=== PATIENT | female | born 1935 | race Caucasian/White ===

== ENCOUNTER 2016-08-14 18:17 | Emergency (ER) | payer MEDICARE ==
[~2016-08-14] VITALS: Ht 152.4 cm; Wt 54.4 kg
[~2016-08-14 18:17] MED LIST: ACET-168 PO; ACET-2267 PO; ACET1TAB43 PO; BACL10TA PO; CHOL4PAC PO; CITA10TA7 PO; CLIN300C11 PO; DABI150C5 PO; DICL100G18 TP; DONE10TA41 PO; DONE5TAB30 PO; FAMO20TA5 PO; FEN12TD TD; FENT1PAT8 TD; HYDR-3812 PO; HYDR-3816 PO; HYDR-3820 PO; LACT1CAP62 PO; LD5O35 TP; LEVO100T7 PO; LEVO250T46 PO; LISI10TA2 PO; LOPE2TAB34 PO; LORA10TA7 PO; LUTE20TA PO; METO-333 PO; NITR1PAT56 TD; NITR1PAT62 TD; POTA10CA43 PO; PRAM0.5T9 PO; SULF-222 PO; [UNRECOGNIZED DRUG - CODE] PO
--- OUTSIDE RECORDS SUMMARY | 2016-08-14 18:25 | XMS REPORT | Continuity of Care Document ---
Author Author [facility] Organization [facility] Address Unknown Phone Unavailable Care Team Providers Care Director Pharmacology Name Role Phone ADENIKE LUJAN DO PCP Insurance Providers Payer Name Policy Number Subscriber Name Relationship Wps Medicare [id number] Abigail Sharma 18 Self / Same As Patient Blue Cross Mcr Supp [id number] Abigail Sharma 18 Self / Same As Patient Advance Directives Directive Response Recorded Date/Time Advance Directives Yes 12/24/15 6:37pm Health Care Power of Cigar Head Piercer Y WHIT- SON 12/24/15 6:37pm Organ Donor [...] Type Severity Reaction Status Last Updated gluten ([id number]) Allergy Unknown Active 12/22/15 Immunizations Name Given Type Date of Pneumonia Vaccine 06/25/15 Historical Date of Influenza Vaccine 06/25/15 Historical Vital Signs Acute Vital Signs Vital Response Date/Time Temperature (Fahrenheit) 96.6 degrees F (97.6 - 99.5) 01/04/2016 2:13pm Temperature (Calculated Celsius) 35.16919 degrees C (36.4 - 37.5) 01/04/2016 6:00am [...] 2.00 inches 12/24/2015 6:42pm Height (Calculated Centimeters) 157.447859 cm 12/24/2015 6:42pm Weight (Pounds) 130 pounds 12/24/2015 6:42pm Weight (Ounces) 0.0 oz 12/24/2015 6:42pm Weight (Calculated Grams) 27208.009 gm 12/24/2015 6:42pm Weight (Calculated Kilograms) 58.052223 kilograms 12/24/2015 6:42pm Calculated BMI 23.8 12/24/2015 [...] SELECTED GROUPS OF HIGH RISK PATIENTS. SIX[employer] [place] [employer] OF CHEST PH[employer]ICIANS CONSENSUS CONFERENCE ON ANTITHROMBOTIC THERAPY (2000). Activated Partial Thromboplast Time 57 SEC H 24-35 12/22/2015 4:47am 02/2016 5:56am Urine Color YELLOW 12/21/2015 1:23pm 12/21/2015 1:44pm Urine Clarity SLIGHTLY CLOUDY 12/21/2015 1:23pm 12/21/2015 1:44pm Urine pH 5 5-9 12/21/2015 1:23pm 12/21/2015 1:44pm Urine Specific [place] 1.015 * 1.016-1.022 12/21/2015 1:pm 2015 1:44pm [...] 0.70-1.48 12/21/2015 11:23am 12/21/2015 2: 34pm TSH [place] Testing 10.89 UIU/ML H 0.35-4.94 12/21/2015 11:23am [...] Discharge/Depart Date Attending Provider Discharged Inpatient [facility] 12/24/15 1:25pm 1:50pm SARAH MILLER MD Discharged Inpatient [facility] 12/21/15 1:59pm 1:00pm ADENIKE LUJAN DO
--- NOTE | 2016-08-14 19:06 | ED Fall/Injury ---
General Chief Complaint: Trauma-Non Activation Stated Complaint: FALL Nursing Triage Note: PT TO ED 2 W/ C/O BACK PAIN. SEE TRAUMA ASSESSMENT Source: patient, RN/MD (Mary callahan RN), EMS Exam Limitations: no limitations History of Present Illness Time seen by provider: 18:19 Initial Comments 80-year-old female patient presents to the emergency department the [facility] with complaints of mid back pain. Report was taken from mary callahan nurse with reports of patient having left hip pain. Reports patient was supposed to be wearing her back brace but had taken it off by herself. Reports patient was a bleeding with her walker when she fell. Denies hitting her head, loss of consciousness, neck pain, chest pain, shortness of air, numbness, weakness, bowel incontinence, or bladder incontinence. Location Injury Occurred: NSG HOME Occurred: just prior to arrival Injuries/Pain Location: back, lower extremity (left hip) Context: lost balance Loss of Consciousness: no loss of consciousness Modifying Factors: Improves With Immobilization, Worse With Movement, Improves With Pain Medication (patient has a fentanyl patch on the left flank and had taken a lortab 10 min prior to EMS arrival.) Allergies and Home Medications Allergies Coded Allergies: gluten (Verified Allergy, Unknown, 12/22/15) Home Medications Acetaminophen 500 Mg Tablet 500 MG PO Q6H PRN PRN PAIN OR FEVER (Reported) Acetaminophen 500 Mg Tablet 500 MG PO BID (Reported) Baclofen 10 Mg Tablet 5-10 MG PO BID PRN PRN MUSCLE SPASMS (Reported) TAKES 1/2 TO 1 OF A (10 MG) TABLET Cholestyramine/Aspartame 4 Gm Powd.pack 1 PACKET PO BID (Reported) Citalopram Hydrobromide 10 Mg Tablet #30 5 MG PO HS Prescribed by: ADENIKE LUJAN on 06/22/16 1034 Dabigatran Etexilate Mesylate 150 Mg Capsule 150 MG PO BID (Reported) Diclofenac Sodium 100 Gm Gel..gram. 4 GM TP BID (Reported) APPLY TO NECK Donepezil HCl 10 Mg Tablet 10 MG PO BID (Reported) Famotidine 20 Mg Tablet 20 MG PO HS (Reported) Fentanyl 1 Each Patch.td72 25 MCG TD Q72H (Reported) Hydrocodone/Acetaminophen 1 Each Tablet 1 TAB PO TID (Reported) Hydrocodone/Acetaminophen 1 Each Tablet 1 TAB PO Q4H PRN PRN PAIN (Reported) Lactobacillus Acidophilus 1 Each Capsule 1 CAP PO DAILY (Reported) Levothyroxine Sodium 100 Mcg Tablet 100 MCG PO HS (Reported) Lidocaine HCl 35 Gm Oint TP PRN PRN PRN BACK PAIN (Reported) Lisinopril 10 Mg Tablet 10 MG PO DAILY (Reported) Loratadine 10 Mg Tablet 10 MG PO DAILY (Reported) Lutein 20 Mg Tablet 20 MG PO HS (Reported) Metoprolol Tartrate 25 Mg Tablet 25 MG PO BID (Reported) HOLD IF PULSE IS BELOW 60 Nitroglycerin 1 Each Patch.td24 0.1 MG TD DAILY (Reported) ON 12 HOURS OFF 12 HOURS Potassium Chloride 10 Meq Capsule.er 10 MEQ PO DAILY (Reported) Pramipexole Di-HCl 0.5 Mg Tablet 0.5 MG PO HS (Reported) Simethicone 180 Mg Capsule 180 MG PO DAILY (Reported) Constitutional: no symptoms reported Eyes: No Symptoms Reported Ears, Nose, Mouth, Throat: no symptoms reported Respiratory: No cough, No short of breath Cardiovascular: No chest pain, No palpitations, No syncope Gastrointestinal: no symptoms reported Genitourinary: no symptoms reported Musculoskeletal: see HPI back pain joint painNo joint swelling, No neck pain Skin: no symptoms reported Psychiatric/Neurological: Denies Headache, Denies Numbness, Denies Paresthesia , Denies Tingling, Denies Weakness All Other Systems Reviewed Negative Unless Noted: Yes (Negative excepted noted.) Past Qzneewd-Dyjeoi-Jbswpr Hx Patient Social History Alcohol Use: Denies Use Recreational Drug Use: No Smoking Status: Never a Smoker Recent Foreign Travel: No Contact w/Someone Who Travel: No Recent Infectious Disease Expo: No Recent Hopitalizations: No Immunizations Up To Date Date of Pneumonia Vaccine: Jun 25, 2015 Date of Influenza Vaccine: Apr 06, 2016 Seasonal Allergies Seasonal Allergies: Yes Surgeries HX Surgeries: Yes (FX PELVIS, HERNIA) Surgeries: CABG, Section, Orthopedic Respiratory Hx Respiratory Disorders: No Cardiovascular Hx Cardiac Disorders: Yes Cardiac Disorders: Atrial Fibrillation, Coronary Artery Disease, Hypertension Neurological Hx Neurological Disorders: Yes Neurological Disorders: Dementia Reproductive System Hx Reproductive Disorders: No Sexually Transmitted Disease: No HIV/AIDS: No Genitourinary Hx Genitourinary Disorders: No Gastrointestinal Hx Gastrointestinal Disorders: Yes Gastrointestinal Disorders: Gastroesophageal Reflux Musculoskeletal Hx Musculoskeletal Disorders: Yes Musculoskeletal Disorders: Arthritis Endocrine Hx Endocrine Disorders: Yes Endocrine Disorders: Hypothyroidsim HEENT HX ENT Disorders: Yes (allergic rhinitis) HEENT Disorders: Macular Degeneration Cancer Hx Cancer: Yes (hx of incontinence) Cancer: Colon Psychosocial Hx Psychiatric Problems: No Integumentary HX Skin/Integumentary Disorder: No Blood Transfusions Hx Blood Disorders: No Reviewed Nursing Assessment Reviewed/Agree w Nursing PMH: Yes Family Medical History Significant Family History: No Pertinent Family Hx Family Medial History: Alzheimer's disease 19 MOTHER G8 SISTER Arthritis 19 MOTHER G8 SISTER G8 SISTER Cataracts 19 MOTHER Dementia 19 FATHER 19 MOTHER G8 SISTER Physical Exam Vital Signs Vital Sign - Last 12Hours 08/14/16 18:17 Temp 98.6 Pulse 74 Resp 18 B/P 106/58 Pulse Ox 95 O2 Delivery Room Air Capillary Refill : Less Than 3 Seconds General Appearance: WD/WN (age appropriate ) no apparent distress Extremities: normal range of motion normal inspection normal capillary refill pelvis stable pedal edema ((1+ bilaterally)) other (left lateral hip ttp w/o swelling or deformity.) Neurologic/Psychiatric: facility service associate II-XII nml as tested no motor/sensory deficits alert normal mood/affect oriented x 3 Skin: normal color warm/dryNo ecchymosis Sandra Coma Score Best Eye Response: (4) Open Spontaneously Best Verbal Response: (5) Oriented Best Motor Response: (6) Obeys Commands [place] Total: 15 Progress/Results/Core Measures Results/Orders My Orders Orders-PASTORA MARY Ct Head/Cervical Spine Wo (08/14/16 18:31) Ct Thoracic/Lumbar Spine Wo (08/14/16 18:31) Chest 1 View, Ap/Pa Only (08/14/16 18:31) Pelvis (08/14/16 18:31) Hip, Left, 2 Views (08/14/16 18:31) Vital Signs/I&O Vital Sign - Last 12Hours 08/14/16 08/14/16 18:17 20:43 Temp 98.6 Pulse 74 67 Resp 18 18 B/P 106/58 Pulse Ox 95 99 O2 Delivery Room Air Blood Pressure Mean: 74 Diagnostic Imaging Diagonstic Imaging: CT Plain Films/CT/US/NM/MRI: c-spine, head Comments FINDINGS: Head: No hyperdense hemorrhage or space-occupying mass. No hydrocephalus or midline shift. Basilar cisterns remain patent. No evidence of territorial infarct. Diffuse generalized cerebral and cerebellar volume loss without lobar predominance is unchanged. Periventricular white matter hypoattenuation is also unchanged and likely due to chronic microvascular ischemic change. Probable old lacunar infarct in the left basal ganglia is stable. No skull fracture. Small air-fluid level in the left maxillary sinus is new and could represent acute sinusitis in the appropriate setting. Mastoid air cells are clear. Orbits are unremarkable. No skull fracture. Cervical spine: No acute fracture or traumatic malalignment. Minimal degenerative retrolisthesis of C4 on C5 is unchanged. No osseous high-grade spinal stenosis or neuroforaminal narrowing. Visible lung apices are clear. No cervical lymphadenopathy. Visualized salivary glands are symmetric. IMPRESSION: 1. No acute intracranial process. 2. No acute fracture or traumatic malalignment of the cervical spine. 3. New air-fluid level in the left maxillary sinus may represent acute sinusitis in the appropriate clinical setting. 4. Generalized atrophy with senescent white matter microvascular ischemic disease is unchanged. Reviewed: Reviewed by Me (radiology report reviewed by me) Diagonstic Imaging: CT Plain Films/CT/US/NM/MRI: other (thoracic and lumbar spine) Comments Findings: Thoracic spine: There is a compression fracture of the superior endplate of T8 which has approximately 40% of height loss centrally. No significant retropulsed ossific fragments. There is associated sclerosis with this fracture which may represent acute on chronic fracture. There is also inferior endplate compression fracture of T12 with endplate irregularity and height loss of approximately 30% anteriorly. Please see below for L1 compression fracture details. The other thoracic vertebrae are normal in height. No traumatic spondylolisthesis in the thoracic spine. Lumbar spine: There is complete height loss of the L1 vertebral body. There is retropulsed ossific fragment of the superior endplate of L1 into the spinal canal resulting in at least moderate central spinal stenosis. There is also a nondisplaced acute fracture of the inferior endplate of L3. Prior vertebroplasty changes of chronic compression fracture of L2. Diffuse osteoporosis. Posterior elements are intact. Right-sided sacral insufficiency fracture. No evidence of paravertebral hematoma. Impression: 1. Acute or subacute compression fracture of the superior endplate of T8 with approximately 40% of height loss. No retropulsed fragments. 2. Compression fracture of L1 with complete loss of height. Retropulsed osseous fragment into the spinal canal results in at least moderate central spinal stenosis. 3. Inferior endplate compression fracture of T12 is likely chronic in nature. 4. Nondisplaced acute inferior endplate compression fracture of L3. 5. Old compression fracture of L2 status post vertebral augmentation. Dictated on workstation # [id number] Reviewed: Reviewed by Me (radiology report reviewed by me) Diagonstic Imaging: Xray Plain Films/CT/US/NM/MRI: chest Comments Findings: No new focal airspace disease in the visualized lungs. Linear left basilar opacities persist and are likely due to chronic atelectasis or scar. Please note that the posterior lower lobes are poorly evaluated by portable radiography. No pleural effusion or pneumothorax. Normal cardiomediastinal silhouette. Remote right-sided rib fractures. Surgical changes from prior clamshell thoracotomy. Vertebroplasty changes in the lower thoracic vertebrae. Impression: No acute cardiopulmonary process by portable radiography. Dictated on workstation # [id number] Reviewed: Reviewed by Me (radiology report reviewed by me) Diagonstic Imaging: Xray Plain Films/CT/US/NM/MRI: pelvis Comments Findings: The osseous structures appear demineralized. Interval right hip arthroplasty is noted. Prior vertebroplasty changes within the upper lumbar spine. Surgical clips within the right upper quadrant. Deformity and sclerosis of the right superior pubic ramus is present. No acute fracture or dislocation. Vascular calcifications are present. Impression: No definite acute osseous abnormality identified. Healed right superior pubic rami fractures. Osseous demineralization. Additional chronic and post surgical changes, as above. Dictated on workstation # [id number] Reviewed: Reviewed by Me (radiology report reviewed by me) Diagonstic Imaging: Xray Plain Films/CT/US/NM/MRI: hip (left) Comments FINDINGS: Diffuse osteoporosis limits evaluation for nondisplaced fractures. Allowing for this, no fracture of the proximal femur. Old posttraumatic deformities involving the left inferior pubic ramus and right pubic body are unchanged. Mild degenerative changes of the left hip. Evaluation of the sacrum is severely limited due to extensive bowel gas. IMPRESSION: 1. No evidence of acute fracture of the proximal left femur. 2. Old posttraumatic deformities of the right pubic body and left inferior pubic ramus. Dictated on workstation # [id number] Reviewed: Reviewed by Me (radiology report reviewed by me) Departure Communication Progress Notes 1950 Patient case discussed with Dr. Boland. Requests this examiner to contact Ortho for recommendations. [address] case discussed with Dr. Encarnacion. Dr. Encarnacion recommends [facility] to assisted living with f/u as an outpatient in Dr. Hemphill's or Dr. Miramontes's office. 1957 Dr. Boland notified of recommendations by Dr. Encarnacion. Agrees with the plan of care. All diagnostic findings and recommendations discussed with the patient and son. Both voice understanding and agree with the plan of care. Impression Impression: Primary Impression: Wedge compression fracture of T8 vertebra Qualified Code: S22.060A - Wedge compression fracture of T7-T8 vertebra, initial encounter for closed fracture Additional Impressions: Closed compression fracture of L3 lumbar vertebra Qualified Code: S32.030A - Wedge compression fracture of third lumbar vertebra , initial encounter for closed fracture History of compression fracture of spine Fall Qualified Code: W19.XXXA - Unspecified fall, initial encounter Disposition: HOME, SELF-CARE Condition: Improved Departure-Patient Inst. Decision time for Depature: 20:05 Referrals: GIOVANNA MIRAMONTES BRIAN J MD JENKINS, XAVIER M MD ORENDER, JACQUELINE S DO (PCP/Family) Primary Care Physician Patient Instructions: Vertebral Compression Fracture (DC) Add. Discharge Instructions: All discharge instructions reviewed with patient and/or family. Voiced understanding. Continue usual home medications including fentanyl and hydrocodone. Wear your back brace as instructed by your physician. Follow-up with Dr. Hemphill or Dr. Miramontes as an outpatient this week, call first thing in the morning for appointment time. Return to the emergency department immediately for worsened pain, numbness, weakness, bowel incontinence, bladder incontinence, changes in behavior, changes in vision, slurred speech, chest pain , shortness of air, seizure, vomiting, or any other concerns. PASTORA MARY Aug 14, 2016 19:06
--- NOTE | 2016-08-14 19:12 | Diagnostic Imaging Report ---
CHEST 1 VIEW, AP/PA ONLY Indication: Fall with pain. Comparison: 06/12/2016 Findings: No new focal airspace disease in the visualized lungs. Linear left basilar opacities persist and are likely due to chronic atelectasis or scar. Please note that the posterior lower lobes are poorly evaluated by portable radiography. No pleural effusion or pneumothorax. Normal cardiomediastinal silhouette. Remote right-sided rib fractures. Surgical changes from prior clamshell thoracotomy. Vertebroplasty changes in the lower thoracic vertebrae. Impression: No acute cardiopulmonary process by portable radiography. Dictated by: Dictated on workstation # [id number]
--- NOTE | 2016-08-14 19:15 | Diagnostic Imaging Report ---
Indication: Fall, pain Comparison: Radiographs of the left hip from the same date as well as December 21, 2015 Technique: Single frontal radiograph of the pelvis dated August 14, 2016 Findings: The osseous structures appear demineralized. Interval right hip arthroplasty is noted. Prior vertebroplasty changes within the upper lumbar spine. Surgical clips within the right upper quadrant. Deformity and sclerosis of the right superior pubic ramus is present. No acute fracture or dislocation. Vascular calcifications are present. Impression: No definite acute osseous abnormality identified. Healed right superior pubic rami fractures. Osseous demineralization. Additional chronic and post surgical changes, as above. Dictated by: Dictated on workstation # [id number]
--- NOTE | 2016-08-14 19:17 | Diagnostic Imaging Report ---
INDICATION: Fall with left hip pain. COMPARISON: 12/21/2015. TECHNIQUE: AP and frog-leg lateral views of the left hip. FINDINGS: Diffuse osteoporosis limits evaluation for nondisplaced fractures. Allowing for this, no fracture of the proximal femur. Old posttraumatic deformities involving the left inferior pubic ramus and right pubic body are unchanged. Mild degenerative changes of the left hip. Evaluation of the sacrum is severely limited due to extensive bowel gas. IMPRESSION: 1. No evidence of acute fracture of the proximal left femur. 2. Old posttraumatic deformities of the right pubic body and left inferior pubic ramus. Dictated by: Dictated on workstation # [id number]
--- NOTE | 2016-08-14 19:20 | Diagnostic Imaging Report ---
PROCEDURE: CT head and CT cervical spine without contrast. TECHNIQUE: Multiple contiguous axial images were obtained through the brain and cervical spine without the use of intravenous contrast. Sagittal and coronal reformations through the cervical spine were then performed. INDICATION: Head and neck pain after a fall. COMPARISON: CT head and neck of 12/21/2015. FINDINGS: Head: No hyperdense hemorrhage or space-occupying mass. No hydrocephalus or midline shift. Basilar cisterns remain patent. No evidence of territorial infarct. Diffuse generalized cerebral and cerebellar volume loss without lobar predominance is unchanged. Periventricular white matter hypoattenuation is also unchanged and likely due to chronic microvascular ischemic change. Probable old lacunar infarct in the left basal ganglia is stable. No skull fracture. Small air-fluid level in the left maxillary sinus is new and could represent acute sinusitis in the appropriate setting. Mastoid air cells are clear. Orbits are unremarkable. No skull fracture. Cervical spine: No acute fracture or traumatic malalignment. Minimal degenerative retrolisthesis of C4 on C5 is unchanged. No osseous high-grade spinal stenosis or neuroforaminal narrowing. Visible lung apices are clear. No cervical lymphadenopathy. Visualized salivary glands are symmetric. IMPRESSION: 1. No acute intracranial process. 2. No acute fracture or traumatic malalignment of the cervical spine. 3. New air-fluid level in the left maxillary sinus may represent acute sinusitis in the appropriate clinical setting. 4. Generalized atrophy with senescent white matter microvascular ischemic disease is unchanged. Dictated by: Dictated on workstation # [id number]
--- NOTE | 2016-08-14 19:38 | Diagnostic Imaging Report ---
CT THORACIC/LUMBAR SPINE WO Technique: Unenhanced CT imaging of the thoracic and lumbar spines. Sagittal and coronal reformats were created and submitted for interpretation. Comparison: Lumbar spine CT of 09/11/2015. Indication: Fall with back pain Findings: Thoracic spine: There is a compression fracture of the superior endplate of T8 which has approximately 40% of height loss centrally. No significant retropulsed ossific fragments. There is associated sclerosis with this fracture which may represent acute on chronic fracture. There is also inferior endplate compression fracture of T12 with endplate irregularity and height loss of approximately 30% anteriorly. Please see below for L1 compression fracture details. The other thoracic vertebrae are normal in height. No traumatic spondylolisthesis in the thoracic spine. Lumbar spine: There is complete height loss of the L1 vertebral body. There is retropulsed ossific fragment of the superior endplate of L1 into the spinal canal resulting in at least moderate central spinal stenosis. There is also a nondisplaced acute fracture of the inferior endplate of L3. Prior vertebroplasty changes of chronic compression fracture of L2. Diffuse osteoporosis. Posterior elements are intact. Right-sided sacral insufficiency fracture. No evidence of paravertebral hematoma. Impression: 1. Acute or subacute compression fracture of the superior endplate of T8 with approximately 40% of height loss. No retropulsed fragments. 2. Compression fracture of L1 with complete loss of height. Retropulsed osseous fragment into the spinal canal results in at least moderate central spinal stenosis. 3. Inferior endplate compression fracture of T12 is likely chronic in nature. 4. Nondisplaced acute inferior endplate compression fracture of L3. 5. Old compression fracture of L2 status post vertebral augmentation. Dictated by: Dictated on workstation # [id number]
[2016-08-14 20:43] VITALS: BP 112/75
== END 2016-08-14 20:43 ==
LOC: EDUNIT# 18:20 → ER 18:21
DX: S32.030A Wedge compression fracture of third lumbar vertebra, initial encounter for closed fracture (principal); S22.060A Wedge compression fracture of T7-T8 vertebra, initial encounter for closed fracture; S22.080D Wedge compression fracture of T11-T12 vertebra, subsequent encounter for fracture with routine healing; S32.010D Wedge compression fracture of first lumbar vertebra, subsequent encounter for fracture with routine healing; S32.020D Wedge compression fracture of second lumbar vertebra, subsequent encounter for fracture with routine healing; M48.06 Spinal stenosis, lumbar region; I10 Essential (primary) hypertension; M81.0 Age-related osteoporosis without current pathological fracture; Z79.899 Other long term (current) drug therapy; Z95.1 Presence of aortocoronary bypass graft; W01.0XXA Fall on same level from slipping, tripping and stumbling without subsequent striking against object, initial encounter; Y92.129 Unspecified place in nursing home as the place of occurrence of the external cause; Y99.8 Other external cause status
CPT/HCPCS: 70450; 71010; 72125; 72128; 72131; 72170; 73502; 99283

== ENCOUNTER 2016-08-17 12:29 | Outpatient (RCR) | payer MEDICARE ==
--- OUTSIDE RECORDS SUMMARY | 2016-05-23 12:48 | XMS REPORT | Continuity of Care Document ---
Author Author [facility] Organization [facility] Address Unknown Phone Unavailable Care Team Providers Care Stationary Plant Operators Name Role Phone ADENIKE LUJAN DO PCP Insurance Providers Payer Name Policy Number Subscriber Name Relationship Wps Medicare [id number] Abigail Sharma 18 Self / Same As Patient Blue Cross Mcr Supp [id number] Abigail Sharma 18 Self / Same As Patient Advance Directives Directive Response Recorded Date/Time Advance Directives Yes 12/24/15 6:37pm Health Care Power of Orthopedic Surgeon Y WHIT- SON 12/24/15 6:37pm Organ Donor Yes 12/24/15 6:37pm Resuscitation Status DNR-Order Obtained 12/24/15 6:37pm Problems Active Problems Medical Problem Onset Date Status Bilateral ankle pain Unknown Acute Cellulitis of right arm Unknown Acute Cellulitis of right hand Unknown Acute Constipation Unknown Acute Displaced fracture of right femoral neck Unknown Acute Fall on same level Unknown Acute Hip fracture, right Unknown Acute Hypoxia Unknown Acute Intractable low back pain Unknown Acute Lower back pain Unknown Acute Right hip pain Unknown Acute Medications Current Home Medications Medication Dose Units Route Directions Days/Qty Instructions Start Date Lisinopril 10 Mg 10 Mg Oral Daily 08/10/15 Potassium Chloride 10 Meq 10 Meq Oral Daily 08/10/15 Dabigatran Etexilate Mesylate 150 Mg 150 Mg Oral Twice A Day Metoprolol Tartrate 25 Mg 25 Mg Oral Twice A Day HOLD IF PULSE IS BELOW 60 08/10/15 Simethicone 180 Mg 180 Mg Oral Daily 08/10/15 Loratadine 10 Mg 10 Mg Oral Daily 08/10/15 Diclofenac Sodium 100 Gm 4 Gm Topical Twice A Day APPLY TO NECK Donepezil Hcl 10 Mg 10 Mg Oral Twice A Day 08/10/15 Levothyroxine Sodium 100 Mcg 100 Mcg Oral Bedtime 08/10/15 Pramipexole Di-Hcl 0.5 Mg 0.5 Mg Oral Bedtime 08/10/15 Famotidine 20 Mg 20 Mg Oral Bedtime 08/10/15 Lidocaine Hcl 35 Gm Topical As Needed as needed for Back Pain Lutein 20 Mg 20 Mg Oral Bedtime 08/10/15 Acetaminophen 500 Mg 500 Mg Oral Every 6 Hours as needed for Pain Or Fever 08/10/15 Nitroglycerin 1 Each 0.1 Mg Transderm Daily ON 12 HOURS OFF 12 HOURS 09/13/15 Acetaminophen 500 Mg 500 Mg Oral Twice A Day 09/13/15 Cholestyramine/Aspartame 4 Gm 1 Packet Oral Twice A Day 09/13/15 Fentanyl 1 Each 25 Mcg Transderm Every 72 Hours 10 01/03/16 Hydrocodone/Acetaminophen 1 Each 1 Ea Oral Every 4HRS as needed for Pain 120 01/03/16 Levofloxacin 250 Mg 250 Mg Oral Daily@1100 5 01/03/16 Past Home Medications Medication Directions Ordered Status Nitroglycerin 1 Each Patch.td24, 1 Patch Transderm Daily 08/10/15 Discontinued Donepezil Hcl 5 Mg Tablet, 5 Mg Oral Bedtime 08/10/15 Discontinued Loperamide Hcl 2 Mg Tablet, 2 Mg Oral Bedtime 08/10/15 Discontinued Sulfamethoxazole/Trimethoprim 1 Each Tablet, 1 Tab Oral Twice A Day 08/10/15 Discontinued Acetaminophen With Codeine 1 Each Tablet, 1 Tab Oral Every 6 Hours as needed for Pain 08/10/15 Discontinued Clindamycin Hcl 300 Mg Capsule, 600 Mg Oral Three Times A Day 08/12/15 Discontinued Acetaminophen 500 Mg Tablet, 500 Mg Oral Bedtime as needed for Pain 09/13/15 Discontinued Fentanyl 12 Mcg Patch, 12 Mcg Transderm Every 72 Hours 09/14/15 Discontinued Hydrocodone/Acetaminophen 1 Each Tablet, 1 Tab Oral Every 6 Hours as needed for Pain 09/14/15 Discontinued Hydrocodone/Acetaminophen 1 Each Tablet, 1 Tab Oral Every 6 Hours as needed for Pain 12/21/15 Discontinued Social History Social History Problem Response Recorded Date/Time Alcohol Use Rarely Uses 12/24/2015 6:38pm Recreational Drug Use No 12/24/2015 6:38pm Recent Foreign Travel No 12/24/2015 6:42pm Recent Infectious Disease Exposure No 12/24/2015 6:38pm Hospitalization with Isolation Denies 01/04/2016 2:17pm Sexually Transmitted Disease No 12/24/2015 6:38pm HIV/AIDS No 12/24/2015 6:38pm Smoking Status Never a Smoker 12/24/2015 6:39pm Query Response Start Date Stop Date Smoking Status Never a Smoker Hospital Discharge Instructions No hospital discharge instructions. Plan of Care Discharge Date 01/04/16 1:50pm Disposition 92 NURSING FAC W PLAN READM Instructions/Education Provided Open Reduction and Internal Fixation of a Hip Fracture (DC) Prescriptions See Medication Section Functional Status Query Response Date Recorded Patient Orientation Confused January 03, 2016 3:02pm Patient Orientation Person Place Confused Eyes Open January 04, 2016 2:17pm Comprehension Ability Understands Concepts January 04, 2016 8:40am Allergies, Adverse Reactions, Alerts Allergen Type Severity Reaction Status Last Updated gluten ([id number]) Allergy Unknown Active 12/22/15 Immunizations Name Given Type Date of Pneumonia Vaccine 06/25/15 Historical Date of Influenza Vaccine 06/25/15 Historical Vital Signs Acute Vital Signs Vital Response Date/Time Temperature (Fahrenheit) 96.6 degrees F (97.6 - 99.5) 01/04/2016 2:13pm Temperature (Calculated Celsius) 35.18752 degrees C (36.4 - 37.5) 01/04/2016 6:00am Temperature Source Tympanic 01/04/2016 2:13pm Pulse Rate (adult) 85 bpm (60 - 90) 01/04/2016 2:13pm Respiratory Rate 16 bpm (12 - 24) 01/04/2016 2:13pm O2 Sat by Pulse Oximetry 96 % (88 - 100) 01/04/2016 2:13pm Blood Pressure 122/71 mm Hg 01/04/2016 2:13pm Blood Pressure Mean 88 mm Hg 01/04/2016 6:00am Pain Pain Intensity 0 01/04/2016 6:00am Height (Feet) 5 feet 12/24/2015 6:42pm Height (Inches) 2.00 inches 12/24/2015 6:42pm Height (Calculated Centimeters) 157.346903 cm 12/24/2015 6:42pm Weight (Pounds) 130 pounds 12/24/2015 6:42pm Weight (Ounces) 0.0 oz 12/24/2015 6:42pm Weight (Calculated Grams) 59582.009 gm 12/24/2015 6:42pm Weight (Calculated Kilograms) 58.191789 kilograms 12/24/2015 6:42pm Calculated BMI 23.8 12/24/2015 6:42pm Results Laboratory Results Test Name Result Units Flags Reference Collection Date/Time Result Date/ Time Comments White Blood Count 13.9 10^3/uL H 4.3-11.0 12/22/2015 4:47am 12/22/2015 5: 33am Red Blood Count 3.86 10^6/uL L 4.35-5.85 12/22/2015 4:47am 12/22/2015 5: 33am Hemoglobin 9.8 G/DL L 11.5-16.0 12/24/2015 5:55am 12/24/2015 6:57am Hematocrit 28 % L 35-52 12/24/2015 5:55am 12/24/2015 6:57am Mean Corpuscular Volume 86 FL 80-99 12/22/2015 4:47am 12/22/2015 5: 33am Mean Corpuscular Hemoglobin 30 PG 25-34 12/22/2015 4:47am 12/22/2015 5: 33am Mean Corpuscular Hemoglobin Concent 36 G/DL 32-36 12/22/2015 4:47am 02/2016 5:33am Red Cell Distribution Width 15.4 % H 10.0-14.5 12/22/2015 4:47am 2015 5:33am Platelet Count 351 10^3/uL 130-400 12/22/2015 4:47am 12/22/2015 5:33am Mean Platelet Volume 9.0 FL 7.4-10.4 12/22/2015 4:47am 12/22/2015 5: 33am Neutrophils (%) (Auto) 87 % H 42-75 12/22/2015 4:47am 12/22/2015 5:33am Lymphocytes (%) (Auto) 9 % L 12-44 12/22/2015 4:47am 12/22/2015 5:33am Monocytes (%) (Auto) 4 % 0-12 12/22/2015 4:47am 12/22/2015 5:33am Eosinophils (%) (Auto) 0 % 0-10 12/22/2015 4:47am 12/22/2015 5:33am Basophils (%) (Auto) 0 % 0-10 12/22/2015 4:47am 12/22/2015 5:33am Neutrophils # (Auto) 12.1 X 10^3 H 1.8-7.8 12/22/2015 4:47am 12/22/2015 5 :33am Lymphocytes # (Auto) 1.2 X 10^3 1.0-4.0 12/22/2015 4:47am 12/22/2015 5: 33am Monocytes # (Auto) 0.6 X 10^3 0.0-1.0 12/22/2015 4:47am 12/22/2015 5: 33am Eosinophils # (Auto) 0.0 10^3/uL 0.0-0.3 12/22/2015 4:47am 12/22/2015 5 :33am Basophils # (Auto) 0.0 10^3/uL 0.0-0.1 12/22/2015 4:47am 12/22/2015 5: 33am Prothrombin Time 16.2 SEC H 12.2-14.7 12/22/2015 4:47am 12/22/2015 5: 56am INR Comment 1.3 0.8-1.4 12/22/2015 4:47am 12/22/2015 5:56am INTERPRETIVE DATA SUGGESTED THERAPEUTIC RANGE FOR INR'S: VENOUS THROMBOSIS, PULMONARY EMBOLISM, OR PREVENTION OF SYSTEMIC EMBOLISM (EG. IN ATRIAL FIBRILLATION): 2.0 - 3.0 MECHANICAL PROSTHETIC HEART VALVES: 2.5 - 3.5* *NOTE: INR'S UP TO 4.5 MAY BE NECESSARY IN SELECTED GROUPS OF HIGH RISK PATIENTS. SIXTH [place] COLLEGE OF CHEST PHYSICIANS CONSENSUS CONFERENCE ON ANTITHROMBOTIC THERAPY (2000). Activated Partial Thromboplast Time 57 SEC H 24-35 12/22/2015 4:47am 02/2016 5:56am Urine Color YELLOW 12/21/2015 1:23pm 12/21/2015 1:44pm Urine Clarity SLIGHTLY CLOUDY 12/21/2015 1:23pm 12/21/2015 1:44pm Urine pH 5 5-9 12/21/2015 1:23pm 12/21/2015 1:44pm Urine Specific [place] 1.015 * 1.016-1.022 12/21/2015 1:pm 2015 1:44pm Urine Protein NEGATIVE NEGATIVE 12/21/2015 1:pm 12/21/2015 1:44pm Urine Glucose (UA) NEGATIVE NEGATIVE 12/21/2015 1:pm 12/21/2015 1: 44pm Urine RBC (Auto) 4+ * NEGATIVE 12/21/2015 1:pm 12/21/2015 1:44pm Urine Ketones NEGATIVE NEGATIVE 12/21/2015 1:pm 12/21/2015 1:44pm Urine Nitrite POSITIVE * NEGATIVE 12/21/2015 1:pm 12/21/2015 1:44pm Urine Bilirubin NEGATIVE NEGATIVE 12/21/2015 1:pm 12/21/2015 1: 44pm Urine Urobilinogen NORMAL MG/DL NORMAL 12/21/2015 1:pm 12/21/2015 1: 44pm Urine Leukocyte Esterase 2+ * NEGATIVE 12/21/2015 1:12/21/2015 1: 44pm Urine RBC 2-5 /HPF * 12/21/2015 1:pm 12/21/2015 1:44pm Urine WBC 2-5 /HPF 12/21/2015 1:pm 12/21/2015 1:44pm Urine Bacteria MODERATE /HPF * 12/21/2015 1:pm 12/21/2015 1:44pm Urine Squamous Epithelial Cells 0-2 /HPF 12/21/2015 1:pm 2015 1:44pm Urine Crystals NONE /LPF 12/21/2015 1:pm 12/21/2015 1:44pm Urine Casts NONE /LPF 12/21/2015 1:pm 12/21/2015 1:44pm Urine Mucus NEGATIVE /LPF 12/21/2015 1:pm 12/21/2015 1:44pm Urine Culture Indicated YES 12/21/2015 1:pm 12/21/2015 1:44pm Sodium Level 135 MMOL/L 135-145 12/22/2015 4:47am 12/22/2015 5:49am Potassium Level 4.4 MMOL/L 3.6-5.0 12/22/2015 4:47am 12/22/2015 5:49am Chloride Level 104 MMOL/L 98-107 12/22/2015 4:47am 12/22/2015 5:49am Carbon Dioxide Level 20 MMOL/L L 21-32 12/22/2015 4:47am 12/22/2015 5: 49am Anion Gap 11 MMOL/L 5-14 12/22/2015 4:47am 12/22/2015 5:49am Blood Urea Nitrogen 11 MG/DL 7-18 12/22/2015 4:47am 12/22/2015 5:49am Creatinine 0.76 MG/DL 0.60-1.30 12/22/2015 4:47am 12/22/2015 5:49am BUN/Creatinine Ratio 14 12/22/2015 4:47am 12/22/2015 5:49am Estimat Glomerular Filtration Rate > 60 12/22/2015 4:47am 2015 5:49am GFR INTERPRETIVE DATA UNITS FOR ESTIMATED GFR (eGFR): mL/min/1.73 M2 REFERENCE RANGE FOR ESTIMATED GFR (eGFR) eGFR NORMAL eGFR >60 MODERATELY DECREASED eGFR 30-59 SEVERLY DECREASED eGFR 15-29 KIDNEY FAILURE <15 (OR DIALYSIS) Glucose Level 132 MG/DL H 70-105 12/22/2015 4:47am 12/22/2015 5:49am Calcium Level 8.8 MG/DL 8.5-10.1 12/22/2015 4:4712/22/2015 5:49am Total Bilirubin 1.9 MG/DL H 0.1-1.0 12/22/2015 4:47am 12/22/2015 5:49am Alkaline Phosphatase 125 U/L 40-136 12/22/2015 4:47am 12/22/2015 5: 49am Aspartate Amino Transf (AST/SGOT) 21 U/L 5-34 12/22/2015 4:47am 2015 5:49am Alanine Aminotransferase (ALT/SGPT) 16 U/L 0-55 12/22/2015 4:47am 12/21 5:49am Total Protein 6.0 G/DL L 6.4-8.2 12/22/2015 4:47am 12/22/2015 5:49am Albumin 3.4 G/DL 3.2-4.5 12/22/2015 4:47am 12/22/2015 5:49am Free Thyroxine 0.95 NG/DL 0.70-1.48 12/21/2015 11:23am 12/21/2015 2: 34pm [facility] [place] Testing 10.89 UIU/ML H 0.35-4.94 12/21/2015 11:23am 2015 2:02pm FREE T4 (THYROXINE) PERFORMED REFLEXIVELY PART OF THE THYROID ANALYZER. Pending Laboratory Results Test Name Collection Date/Time Microbiology Results Procedure Source Result Collection Date/Time Result Date/Time Urine Culture Urine, Straight Cath, In/Out ESCHERICHIA COLI 12/21/2015 1: 23pm 12/23/2015 9:27am Pending Microbiology Results Procedure Source Collection Date/Time Procedures Procedure Status Date Provider(s) REPLACE OF R HIP JT WITH SYNTH SUB, UNCEMENT, OPEN APPROACH Completed SARAH MILLER MD Tracing only of electrocardiogram Completed 12/21/15 PASTORA MARY Encounters Encounter Location Arrival/Admit Date Discharge/Depart Date Attending Provider Discharged Inpatient [facility] 12/24/15 1:25pm 1:50pm SARAH MILLER MD Discharged Inpatient [facility] 12/21/15 1:59pm 1:00pm ADENIKE LUJAN DO
== END 2016-08-21 | disposition home or self-care (01) ==
LOC: WOUNDCARE 12:29
PROVIDERS: ATTEND Nurse Practitioner
DX: L89.213 Pressure ulcer of right hip, stage 3 (principal); E44.0 Moderate protein-calorie malnutrition; R54 Age-related physical debility
CPT/HCPCS: 11042; 87070; 87075; 87077; 87186; 87205; 99212; 99213

== ENCOUNTER 2016-09-12 16:45 | Emergency (ER) | payer MEDICARE ==
[~2016-09-12] VITALS: Ht 160 cm; Wt 54.4 kg
--- OUTSIDE RECORDS SUMMARY | 2016-09-12 16:50 | XMS REPORT | Continuity of Care Document ---
Author Author [facility] Organization [facility] Address Unknown Phone Unavailable Care Team Providers Care Health Insurance Specialist Name Role Phone ADENIKE LUJAN DO PCP Insurance Providers Payer Name Policy Number Subscriber Name Relationship Wps Medicare [id number] Abigail Sharma 18 Self / Same As Patient [employer] Supp [id number] Abigail Sharma 18 Self / Same As Patient Advance Directives Directive Response Recorded Date/Time Advance Directives Yes 12/24/15 6:37pm Health Care Power of Tail Sawyer Y WHIT- SON 12/24/15 6:37pm Organ Donor [...] Type Severity Reaction Status Last Updated gluten ([id number]) Allergy Unknown Active 12/22/15 Immunizations Name Given Type Date of Pneumonia Vaccine 06/25/15 Historical Date of Influenza Vaccine 06/25/15 Historical Vital Signs Acute Vital Signs Vital Response Date/Time Temperature (Fahrenheit) 96.6 degrees F (97.6 - 99.5) 01/04/2016 2:13pm Temperature (Calculated Celsius) 35.83357 degrees C (36.4 - 37.5) 01/04/2016 6:00am [...] 2.00 inches 12/24/2015 6:42pm Height (Calculated Centimeters) 157.006508 cm 12/24/2015 6:42pm Weight (Pounds) 130 pounds 12/24/2015 6:42pm Weight (Ounces) 0.0 oz 12/24/2015 6:42pm Weight (Calculated Grams) 74017.009 gm 12/24/2015 6:42pm Weight (Calculated Kilograms) 58.379400 kilograms 12/24/2015 6:42pm Calculated BMI 23.8 12/24/2015 [...] SELECTED GROUPS OF HIGH RISK PATIENTS. [employer] CONSENSUS CONFERENCE ON ANTITHROMBOTIC THERAPY (2000). Activated Partial Thromboplast Time 57 SEC H 24-35 12/22/2015 4:47am 02/2016 5:56am Urine Color YELLOW 12/21/2015 1:23pm 12/21/2015 1:44pm Urine Clarity SLIGHTLY CLOUDY 12/21/2015 1:23pm 12/21/2015 1:44pm Urine pH 5 5-9 12/21/2015 1:23pm 12/21/2015 1:44pm Urine Specific [place] 1.015 * 1.016-1.022 12/21/2015 1:pm 2015 1:44pm [...] 0.70-1.48 12/21/2015 11:23am 12/21/2015 2: 34pm [facility] [place] Testing 10.89 UIU/ML H 0.35-4.94 12/21/2015 11:23am [...] Discharge/Depart Date Attending Provider Discharged Inpatient [facility] 12/24/15 1:25pm 1:50pm SARAH MILLER MD Discharged Inpatient [facility] 12/21/15 1:59pm 1:00pm ADENIKE LUJAN DO
--- NOTE | 2016-09-12 16:54 | ED Abdominal Pain ---
General Stated Complaint: ABD PAIN Source of Information: Patient Exam Limitations: No Limitations History of Present Illness Time Seen By Provider: 16:54 Initial Comments To ER with right-sided abdominal pain. This is been ongoing since yesterday. She has had some issues with constipation. No vomiting. No fevers or chills. She cannot recall whether or not she has been passing gas today. Timing/Duration: 1-2 Days Severity/Quality: Moderate Location: Generalized Abdomen Radiation: No Radiation Activities at Onset: None Associated Symptoms: Denies SymptomsNo Fever/Chills, No Nausea/Vomiting Allergies and Home Medications Allergies Coded Allergies: gluten (Verified Allergy, Unknown, 12/22/15) Home Medications Acetaminophen 500 Mg Tablet 500 MG PO Q6H PRN PRN PAIN OR FEVER (Reported) Acetaminophen 500 Mg Tablet 500 MG PO BID (Reported) Baclofen 10 Mg Tablet 5-10 MG PO BID PRN PRN MUSCLE SPASMS (Reported) TAKES 1/2 TO 1 OF A (10 MG) TABLET Cholestyramine/Aspartame 4 Gm Powd.pack 1 PACKET PO BID (Reported) Citalopram Hydrobromide 10 Mg Tablet #30 5 MG PO HS Prescribed by: ADENIKE LIMA on 06/22/16 1034 Dabigatran Etexilate Mesylate 150 Mg Capsule 150 MG PO BID (Reported) Diclofenac Sodium 100 Gm Gel..gram. 4 GM TP BID (Reported) APPLY TO NECK Donepezil HCl 10 Mg Tablet 10 MG PO BID (Reported) Famotidine 20 Mg Tablet 20 MG PO HS (Reported) Fentanyl 1 Each Patch.td72 25 MCG TD Q72H (Reported) Hydrocodone/Acetaminophen 1 Each Tablet 1 TAB PO TID (Reported) Hydrocodone/Acetaminophen 1 Each Tablet 1 TAB PO Q4H PRN PRN PAIN (Reported) Lactobacillus Acidophilus 1 Each Capsule 1 CAP PO DAILY (Reported) Levothyroxine Sodium 100 Mcg Tablet 100 MCG PO HS (Reported) Lidocaine HCl 35 Gm Oint TP PRN PRN PRN BACK PAIN (Reported) Lisinopril 10 Mg Tablet 10 MG PO DAILY (Reported) Loratadine 10 Mg Tablet 10 MG PO DAILY (Reported) Lutein 20 Mg Tablet 20 MG PO HS (Reported) Metoprolol Tartrate 25 Mg Tablet 25 MG PO BID (Reported) HOLD IF PULSE IS BELOW 60 Nitroglycerin 1 Each Patch.td24 0.1 MG TD DAILY (Reported) ON 12 HOURS OFF 12 HOURS Potassium Chloride 10 Meq Capsule.er 10 MEQ PO DAILY (Reported) Pramipexole Di-HCl 0.5 Mg Tablet 0.5 MG PO HS (Reported) Simethicone 180 Mg Capsule 180 MG PO DAILY (Reported) Review of Systems Constitutional: see HPI EENTM: No Symptoms Reported Respiratory: No Symptoms Reported Cardiovascular: No Symptoms Reported Gastrointestinal: No Symptoms Reported Genitourinary: No Symptoms Reported Musculoskeletal: no symptoms reported Skin: no symptoms reported Psychiatric/Neurological: No Symptoms Reported Past Cegwkye-Gzowey-Kjnsfv Hx Patient Social History Recent Hopitalizations: No Immunizations Up To Date Date of Pneumonia Vaccine: Jun 25, 2015 Date of Influenza Vaccine: Apr 06, 2016 Seasonal Allergies Seasonal Allergies: Yes Surgeries HX Surgeries: Yes (FX PELVIS, HERNIA) Surgeries: CABG, Section, Orthopedic Respiratory Hx Respiratory Disorders: No Cardiovascular Hx Cardiac Disorders: Yes Cardiac Disorders: Atrial Fibrillation, Coronary Artery Disease, Hypertension Neurological Hx Neurological Disorders: Yes Neurological Disorders: Dementia Reproductive System Hx Reproductive Disorders: No Sexually Transmitted Disease: No HIV/AIDS: No Genitourinary Hx Genitourinary Disorders: No Gastrointestinal Hx Gastrointestinal Disorders: Yes Gastrointestinal Disorders: Gastroesophageal Reflux Musculoskeletal Hx Musculoskeletal Disorders: Yes Musculoskeletal Disorders: Arthritis Endocrine Hx Endocrine Disorders: Yes Endocrine Disorders: Hypothyroidsim HEENT HX ENT Disorders: Yes (allergic rhinitis) HEENT Disorders: Macular Degeneration Cancer Hx Cancer: Yes (hx of incontinence) Cancer: Colon Psychosocial Hx Psychiatric Problems: No Integumentary HX Skin/Integumentary Disorder: No Blood Transfusions Hx Blood Disorders: No Family Medical History Significant Family History: No Pertinent Family Hx Family Medial History: Alzheimer's disease 19 MOTHER G8 SISTER Arthritis 19 MOTHER G8 SISTER G8 SISTER Cataracts 19 MOTHER Dementia 19 FATHER 19 MOTHER G8 SISTER Physical Exam Vital Signs VS - Last 72 Hours, by Label 09/12/16 17:07 Temp 98.7 Pulse 82 Resp 16 B/P 118/73 Pulse Ox 98 O2 Delivery Room Air Capillary Refill : General Appearance: WD/WN no apparent distress HEENT: PERRL/EOMI normal ENT inspection Neck: non-tender full range of motion Respiratory: lungs clear normal breath sounds no respiratory distress no accessory muscle use Cardiovascular: regular rate, rhythm no murmur Gastrointestinal: normal bowel sounds soft tenderness other (he does have bowel sounds.) Extremities: normal range of motion non-tender pedal edema (bilateral lower extremities. JOSE hose in place.) Neurologic/Psychiatric: alert other (she is confused. She states that she is only temporarily residing here in [place] and has been here for only a few weeks. She also states that her regular physician is from [facility]. However, she has been residing at [facility] since July 2015 and her primary care provider is Dr. Lima.) Skin: normal color warm/dry Progress/Results/Core Measures Results/Orders Lab Results Laboratory Tests Test 09/12/16 16:53 09/12/16 19:25 Range/Units Alanine Aminotransferase (ALT/SGPT) 9 0-55 U/L Albumin 3.7 3.2-4.5 G/DL Alkaline Phosphatase 170 H 40-136 U/L Anion Gap 14 5-14 MMOL/L Aspartate Amino Transf (AST/SGOT) 18 5-34 U/L BUN/Creatinine Ratio 16 Basophils # (Auto) 0.0 0.0-0.1 10^3/uL Basophils (%) (Auto) 1 0-10 % Blood Urea Nitrogen 14 7-18 MG/DL Calcium Level 9.1 8.5-10.1 MG/DL Carbon Dioxide Level 23 21-32 MMOL/L Chloride Level 99 98-107 MMOL/L Creatinine 0.86 0.60-1.30 MG/DL Eosinophils # (Auto) 0.1 0.0-0.3 10^3/uL Eosinophils (%) (Auto) 2 0-10 % Estimat Glomerular Filtration Rate > 60 Glucose Level 95 70-105 MG/DL Hematocrit 33 L 35-52 % Hemoglobin 11.2 L 11.5-16.0 G/DL Lipase 49 8-78 U/L Lymphocytes # (Auto) 1.5 1.0-4.0 X 10^3 Lymphocytes (%) (Auto) 21 12-44 % Mean Corpuscular Hemoglobin 28 25-34 PG Mean Corpuscular Hemoglobin Concent 34 32-36 G/DL Mean Corpuscular Volume 83 80-99 FL Mean Platelet Volume 8.3 7.4-10.4 FL Monocytes # (Auto) 0.6 0.0-1.0 X 10^3 Monocytes (%) (Auto) 8 0-12 % Neutrophils # (Auto) 4.8 1.8-7.8 X 10^3 Neutrophils (%) (Auto) 68 42-75 % Platelet Count 625 H 130-400 10^3/uL Potassium Level 4.1 3.6-5.0 MMOL/L Red Blood Count 3.97 L 4.35-5.85 10^6/uL Red Cell Distribution Width 16.1 H 10.0-14.5 % Sodium Level 136 135-145 MMOL/L Total Bilirubin 0.4 0.1-1.0 MG/DL Total Protein 7.4 6.4-8.2 G/DL White Blood Count 7.0 4.3-11.0 10^3/uL Urine Bacteria NONE /HPF Urine Bilirubin NEGATIVE NEGATIVE Urine Casts NONE /LPF Urine Clarity CLEAR Urine Color YELLOW Urine Crystals NONE /LPF Urine Culture Indicated NO Urine Glucose (UA) NEGATIVE NEGATIVE Urine Ketones NEGATIVE NEGATIVE Urine Leukocyte Esterase NEGATIVE NEGATIVE Urine Mucus NEGATIVE /LPF Urine Nitrite NEGATIVE NEGATIVE Urine Protein NEGATIVE NEGATIVE Urine RBC 0-2 /HPF Urine RBC (Auto) 1+ H NEGATIVE Urine Specific [place] 1.010 L 1.016-1.022 Urine Urobilinogen NORMAL NORMAL MG/DL Urine WBC NONE /HPF Urine pH 6 5-9 My Orders Orders-DANIEL GRANADOS APRN Cbc With Automated Diff (09/12/16 16:53) Comprehensive Metabolic Panel (09/12/16 16:53) Ua Culture If Indicated (09/12/16 16:53) Saline Lock/Iv-Start (09/12/16 16:53) Lipase (09/12/16 16:53) Fentanyl Injection (Sublimaze Injection (09/12/16 17:00) Iohexol Injection (Omnipaque 350 Mg/Ml 1 (09/12/16 17:45) Ns (Ivpb) (Sodium Chloride 0.9% Ivpb Bag (09/12/16 17:45) Diatrizoate Meglum/Sodium 37% (Gastrogra (09/12/16 17:45) Ct Abdomen/Pelvis Wo (09/12/16 16:54) Medications Given in ED Current Medications Medications Dose Ordered Sig/Halima Route Start Time Stop Time Status Last Admin Dose Admin Fentanyl Citrate 25 mcg ONCE ONCE IVP 09/12/16 17:00 09/12/16 17:01 DC 09/12/16 17:01 25 MCG Vital Signs/I&O Vital Sign - Last 12Hours 09/12/16 17:07 Temp 98.7 Pulse 82 Resp 16 B/P 118/73 Pulse Ox 98 O2 Delivery Room Air Diagnostic Imaging Diagonstic Imaging: CT Comments NAME: ELVIN SHARMA [facility] REC#: [id number] PT STATUS: REG ER : 1935 PHYSICIAN: DANIEL GRANADOS [facility] ADMIT DATE: 09/12/16/ER Signed Date of Exam:09/12/16 CT ABDOMEN/PELVIS WO PROCEDURE: CT abdomen and pelvis without contrast. TECHNIQUE: Multiple contiguous axial images were obtained through the abdomen and pelvis without the use of intravenous contrast. INDICATION: 81-year-old female with generalized abdominal pain and possible bowel obstruction. COMPARISONS: 09/05/2015 FINDINGS: Lung bases show COPD with chronic parenchymal changes. There is scarring in both lower lobes versus discoid type atelectasis. Some patchy infiltrates are seen in the left lingula and left lower lobe. Cardiac contour is enlarged. Coronary calcifications are seen. Liver shows uniform attenuation. Gallbladder is surgically absent. Spleen and GE junction are normal. Stomach and duodenal sweep are normal. The oral administered contrast has progressed into the distal small bowel. Kidneys show age-appropriate cortical thinning with slight lumpy bumpy contour possibly representing scarring from either infection or infarct. There is no evidence of hydronephrosis or hydroureter. Both ureters are seen intermittently through their course. The partially filled bladder is normal. There are fluid-filled loops of bowel with contrast. There are also air-fluid levels throughout. Contrast has progressed to the descending colon. There is a moderate amount of fecal material in the rectum. Uterus and adnexa appear age-appropriate. There are degenerative changes in the lumbosacral spine with multilevel hypertrophic facet changes. Since the prior exam, there is a right inferior pubic ramus fracture near the parasymphyseal region which shows some healing with deformity. Beam blum artifact from the right hip prosthesis does limit assessment. Thoracic calcifications are seen in the aortoiliac and femoral arteries as well as the splenic artery. IMPRESSION: 1. Cardiomegaly with coronary calcification 2. Some chronic appearing infiltrates in the left lingula and left lower lobe. 3. COPD with chronic parenchymal changes. 4. Gas-filled loops of small bowel however contrast has progressed from the stomach to the distal large bowel suggesting a diffuse ileus rather than obstruction. There is a moderate amount of fecal load within the distal sigmoid colon and rectum. Additional nonemergent findings as described above. Dictated by: Dictated on workstation # [id number] Dict: 09/12/16 1844 Trans: 09/12/161902 [facility] [id number] Interpreted by: MOMO BASS MD Electronically signed by: MOMO BASS MD 09/12/161904 Departure Impression Impression: Primary Impression: Ileus Disposition: XF SNF Condition: Stable Departure-Patient Inst. Decision time for Depature: 20:18 Referrals: ADENIKE LIMA DO (PCP/Family) Primary Care Physician Patient Instructions: No Instuctions Given Add. Discharge Instructions: 1. Clear liquids only for the next 12 hours 2. Follow-up with Dr. Lima in clinic 3. Return to ER for any concerns. Avoid pain medication use as much as possible as this will worsen the ileus. Copy Copies To 1: ADENIKE LIMA PETER J APRN Sep 12, 2016 16:54
[2016-09-12] MEDS ORDERED: fentaNYL INJECTION 100 MCG/2 ML AMP IVP ONE (17:00)
[2016-09-12 17:01] LABS: BASOPHILS % (AUTO) 1 % (0-10); EOSINOPHILS # (AUTO) 0.1 10^3/uL (0.0-0.3); EOSINOPHILS % (AUTO) 2 % (0-10); LYMPHOCYTES # (AUTO) 1.5 X 10^3 (1.0-4.0); LYMPHOCYTES % (AUTO) 21 % (12-44); MEAN CORPUSCULAR HEMOGLOBIN 28 PG (25-34); MEAN CORPUSCULAR HGB CONC 34 G/DL (32-36); MEAN CORPUSCULAR VOLUME 83 FL (80-99); MEAN PLATELET VOLUME 8.3 FL (7.4-10.4); MONOCYTES # (AUTO) 0.6 X 10^3 (0.0-1.0); MONOCYTES % (AUTO) 8 % (0-12); NEUTROPHILS # (AUTO) 4.8 X 10^3 (1.8-7.8); NEUTROPHILS % (AUTO) 68 % (42-75); PLATELET COUNT 625 10^3/uL (130-400); RED BLOOD COUNT 3.97 10^6/uL (4.35-5.85); RED CELL DISTRIBUTION WIDTH 16.1 % (10.0-14.5)
[2016-09-12 17:29] LABS: ALANINE AMINOTRANSFERASE 9 U/L (0-55); ALBUMIN 3.7 G/DL (3.2-4.5); ANION GAP 14 MMOL/L (5-14); ASPARTATE AMINO TRANSFERASE 18 U/L (5-34); BILIRUBIN,TOTAL 0.4 MG/DL (0.1-1.0); BLOOD UREA NITROGEN 14 MG/DL (7-18); BUN/CREATININE RATIO 16; CALCIUM 9.1 MG/DL (8.5-10.1); CARBON DIOXIDE 23 MMOL/L (21-32); CHLORIDE 99 MMOL/L (98-107); CREATININE SERUM 0.86 MG/DL (0.60-1.30); GFR ESTIMATED > 60; GLUCOSE 95 MG/DL (70-105); LIPASE 49 U/L (8-78); POTASSIUM 4.1 MMOL/L (3.6-5.0); SODIUM 136 MMOL/L (135-145); TOTAL PROTEIN 7.4 G/DL (6.4-8.2)
[2016-09-12] MEDS ORDERED: DIATRIZOATE MEGLUM/SODIUM 37% 120 ML (GASTROGRAFIN) PO ONE (17:45)
[2016-09-12] MEDS ORDERED: NS 100 ML (IVPB) BAG IV ONE (17:45)
[2016-09-12] MEDS ORDERED: IOHEXOL 350 MG/ML 100 ML (OMNIPAQUE 350) VIAL IV ONE (17:45)
--- NOTE | 2016-09-12 19:03 | Diagnostic Imaging Report ---
PROCEDURE: CT abdomen and pelvis without contrast. TECHNIQUE: Multiple contiguous axial images were obtained through the abdomen and pelvis without the use of intravenous contrast. INDICATION: 81-year-old female with generalized abdominal pain and possible bowel obstruction. COMPARISONS: 09/05/2015 FINDINGS: Lung bases show COPD with chronic parenchymal changes. There is scarring in both lower lobes versus discoid type atelectasis. Some patchy infiltrates are seen in the left lingula and left lower lobe. Cardiac contour is enlarged. Coronary calcifications are seen. Liver shows uniform attenuation. Gallbladder is surgically absent. Spleen and GE junction are normal. Stomach and duodenal sweep are normal. The oral administered contrast has progressed into the distal small bowel. Kidneys show age-appropriate cortical thinning with slight lumpy bumpy contour possibly representing scarring from either infection or infarct. There is no evidence of hydronephrosis or hydroureter. Both ureters are seen intermittently through their course. The partially filled bladder is normal. There are fluid-filled loops of bowel with contrast. There are also air-fluid levels throughout. Contrast has progressed to the descending colon. There is a moderate amount of fecal material in the rectum. Uterus and adnexa appear age-appropriate. There are degenerative changes in the lumbosacral spine with multilevel hypertrophic facet changes. Since the prior exam, there is a right inferior pubic ramus fracture near the parasymphyseal region which shows some healing with deformity. Beam blum artifact from the right hip prosthesis does limit assessment. Thoracic calcifications are seen in the aortoiliac and femoral arteries as well as the splenic artery. IMPRESSION: 1. Cardiomegaly with coronary calcification 2. Some chronic appearing infiltrates in the left lingula and left lower lobe. 3. COPD with chronic parenchymal changes. 4. Gas-filled loops of small bowel however contrast has progressed from the stomach to the distal large bowel suggesting a diffuse ileus rather than obstruction. There is a moderate amount of fecal load within the distal sigmoid colon and rectum. Additional nonemergent findings as described above. Dictated by: Dictated on workstation # [id number]
[2016-09-12 19:35] LABS: BILIRUBIN,URINE NEGATIVE (NEGATIVE); KETONES,URINE NEGATIVE (NEGATIVE); LEUKOCYTE ESTERASE ,URINE NEGATIVE (NEGATIVE); NITRITE,URINE NEGATIVE (NEGATIVE); PH,URINE 6 (5-9); PROTEIN,URINE NEGATIVE (NEGATIVE); UROBILINOGEN,URINE NORMAL (NORMAL)
[2016-09-12 20:29] VITALS: BP 121/72
== END 2016-09-12 20:29 ==
LOC: EDUNIT# 16:45 → ER 16:46
DX: K56.7 Ileus, unspecified (principal); K59.00 Constipation, unspecified; I51.7 Cardiomegaly; J44.9 Chronic obstructive pulmonary disease, unspecified; I48.2 Chronic atrial fibrillation; Z95.1 Presence of aortocoronary bypass graft; Z79.899 Other long term (current) drug therapy
CPT/HCPCS: 36415; 74176; 80053; 81000; 83690; 85025; 96374

== ENCOUNTER → 2016-11-09 | Outpatient (CLI) | payer MEDICARE ==
--- NOTE | 2016-11-09 14:11 | Diagnostic Imaging Report ---
INDICATION: Left hip pain. FINDINGS: Two views of the left hip show no fracture, dislocation or osteolytic bony changes. IMPRESSION: Negative left hip. Dictated by: Dictated on workstation # [id number]
== END ==
LOC: RAD 13:47
PROVIDERS: ATTEND Nurse Practitioner
DX: M25.552 Pain in left hip (principal)
CPT/HCPCS: 73502

== ENCOUNTER 2016-11-23 13:16 | Outpatient (RCR) | payer MEDICARE ==
--- OUTSIDE RECORDS SUMMARY | 2016-09-07 13:06 | XMS REPORT | Continuity of Care Document ---
Author Author [facility] Organization [facility] Address Unknown Phone Unavailable Care Team Providers Care Door Operator Name Role Phone ADENIKE LUJAN DO PCP Insurance Providers Payer Name Policy Number Subscriber Name Relationship Wps Medicare [id number] Abigail Sharma 18 Self / Same As Patient [employer] Mc[employer] Supp [id number] Abigail Sharma 18 Self / Same As Patient Advance Directives Directive Response Recorded Date/Time Advance Directives Yes 12/24/15 6:37pm Health Care Power of Geological Engineering Teacher Y WHIT- SON 12/24/15 6:37pm Organ Donor [...] Type Severity Reaction Status Last Updated gluten ([id number]) Allergy Unknown Active 12/22/15 Immunizations Name Given Type Date of Pneumonia Vaccine 06/25/15 Historical Date of Influenza Vaccine 06/25/15 Historical Vital Signs Acute Vital Signs Vital Response Date/Time Temperature (Fahrenheit) 96.6 degrees F (97.6 - 99.5) 01/04/2016 2:13pm Temperature (Calculated Celsius) 35.15744 degrees C (36.4 - 37.5) 01/04/2016 6:00am [...] 2.00 inches 12/24/2015 6:42pm Height (Calculated Centimeters) 157.428774 cm 12/24/2015 6:42pm Weight (Pounds) 130 pounds 12/24/2015 6:42pm Weight (Ounces) 0.0 oz 12/24/2015 6:42pm Weight (Calculated Grams) 64216.009 gm 12/24/2015 6:42pm Weight (Calculated Kilograms) 58.623654 kilograms 12/24/2015 6:42pm Calculated BMI 23.8 12/24/2015 [...] SELECTED GROUPS OF HIGH RISK PATIENTS. [facility] CONSENSUS CONFERENCE ON ANTITHROMBOTIC THERAPY (2000). Activated Partial Thromboplast Time 57 SEC H 24-35 12/22/2015 4:47am 02/2016 5:56am Urine Color YELLOW 12/21/2015 1:23pm 12/21/2015 1:44pm Urine Clarity SLIGHTLY CLOUDY 12/21/2015 1:23pm 12/21/2015 1:44pm Urine pH 5 5-9 12/21/2015 1:23pm 12/21/2015 1:44pm Urine Specific [place] 1.015 * 1.016-1.022 12/21/2015 1:pm 2015 1:44pm [...] 0.70-1.48 12/21/2015 11:23am 12/21/2015 2: 34pm TSH [place] Testing 10.89 UIU/ML H 0.35-4.94 12/21/2015 11:23am [...] Discharge/Depart Date Attending Provider Discharged Inpatient [facility] 12/24/15 1:25pm 1:50pm SARAH MILLER MD Discharged Inpatient [facility] 12/21/15 1:59pm 1:00pm ADENIKE LUJAN DO
== END 2016-12-06 | disposition home or self-care (01) ==
LOC: WOUNDCARE 13:16
PROVIDERS: ATTEND Nurse Practitioner
DX: L89.214 Pressure ulcer of right hip, stage 4 (principal); L89.222 Pressure ulcer of left hip, stage 2; E44.0 Moderate protein-calorie malnutrition; R54 Age-related physical debility
CPT/HCPCS: 11042; 87070; 87075; 87186; 87205; 99212; 99213

== ENCOUNTER 2016-12-07 12:54 | Outpatient (RCR) | payer MEDICARE | END 2016-12-20 16:00 | disposition home or self-care (01) | LOC: WOUNDCARE 12:54 | PROVIDERS: ATTEND Nurse Practitioner | DX: L89.214 Pressure ulcer of right hip, stage 4 (principal); L89.222 Pressure ulcer of left hip, stage 2; E44.0 Moderate protein-calorie malnutrition; R54 Age-related physical debility | CPT/HCPCS: 99213 ==